=== PATIENT | female | born 1940 | race Caucasian/White ===

== ENCOUNTER 2021-03-08 13:58 | Inpatient (IN) ==
[2021-03-08] MEDS: carvediloL 25 MG TABLET PO SCH (22:30)
[2021-03-08] MEDS: lisinopriL 20 MG TABLET PO SCH (22:30)
[2021-03-08] MEDS: Cefdinir 300 MG CAPSULE PO SCH (22:31)
[2021-03-08] MEDS: Magnesium Oxide 400 MG TABLET PO SCH (22:32)
[2021-03-08] MEDS: Gabapentin 100 MG CAPSULE PO SCH (22:32)
[2021-03-09 08:25] LABS: Basophils % 0.6 %; Eosinophils # 0.2 K/mcL (0.0-0.6); Eosinophils % 2.9 %; Hematocrit 37.6 % (35.3-44.9); Hemoglobin 12.1 g/dL (11.5-15.4); Immature Granulocytes % 0.4 % (0-4); Lymphocytes # 0.8 K/mcL (0.6-4.6); Lymphocytes % 16.1 %; Mean Corpuscular HGB Conc 32.2 g/dL (31.6-35.5); Mean Corpuscular Hemoglobin 29.7 pg (28.0-33.3); Mean Corpuscular Volume 92.2 fL (83.0-100.0); Mean Platelet Volume 10.5 fL (9.4-12.4); Monocytes # 0.6 K/mcL (0.0-1.3); Monocytes % 11.2 %; Neutrophils # 3.6 K/mcL (1.6-8.9); Platelet Count 215 K/mcL (140-400); Red Blood Count 4.08 M/mcL (3.82-4.97); Red Cell Distribution Width 13.1 % (11.5-14.5); Segmented Neutrophils % 68.8 %; White Blood Count 5.2 K/mcL (4.3-11.1)
[2021-03-09 08:39] LABS: Calcium 8.9 mg/dL (8.6-10.3); Potassium 4.1 mEq/L (3.5-5.1)
[2021-03-09] MEDS: Gabapentin 100 MG CAPSULE PO SCH ×3 (10:51→22:01)
[2021-03-09] MEDS: Magnesium Oxide 400 MG TABLET PO SCH ×2 (10:52→22:02)
[2021-03-09] MEDS: Cefdinir 300 MG CAPSULE PO SCH ×2 (10:52→22:01)
[2021-03-09] MEDS: carvediloL 25 MG TABLET PO SCH ×3 (11:07→17:20)
[2021-03-09] MEDS: lisinopriL 20 MG TABLET PO SCH (22:00)
[2021-03-10] MEDS: carvediloL 25 MG TABLET PO SCH ×2 (09:41→18:05)
[2021-03-10] MEDS: Gabapentin 100 MG CAPSULE PO SCH ×3 (09:42→21:48)
[2021-03-10] MEDS: Cefdinir 300 MG CAPSULE PO SCH ×2 (09:42→21:48)
[2021-03-10] MEDS: Magnesium Oxide 400 MG TABLET PO SCH ×2 (09:42→21:48)
[2021-03-10] MEDS: lisinopriL 20 MG TABLET PO SCH (21:49)
[2021-03-11] MEDS: carvediloL 25 MG TABLET PO SCH (08:57)
[2021-03-11] MEDS: Cefdinir 300 MG CAPSULE PO SCH ×2 (09:04→22:52)
[2021-03-11] MEDS: Magnesium Oxide 400 MG TABLET PO SCH ×2 (09:04→22:51)
[2021-03-11] MEDS: Gabapentin 100 MG CAPSULE PO SCH ×3 (09:04→22:51)
[2021-03-11] MEDS ORDERED: hydrALAZINE 25 MG TABLET PO PRN (10:10)
[2021-03-11] MEDS ORDERED: NON-FORMULARY MEDICATION 1 EACH EACH (Alendronate Sodium [Fosamax] 70 MG Tablet) PO SCH (18:50)
[2021-03-12 09:12] LABS: Calcium 8.9 mg/dL (8.6-10.3); Potassium 4.2 mEq/L (3.5-5.1)
[2021-03-12] MEDS: Gabapentin 100 MG CAPSULE PO SCH ×3 (09:22→22:32)
[2021-03-12] MEDS: Magnesium Oxide 400 MG TABLET PO SCH ×2 (09:22→22:33)
[2021-03-12] MEDS: Cefdinir 300 MG CAPSULE PO SCH (09:22)
[2021-03-13] MEDS: *HR* HYDROcodone/Acet 5/325 mg TABLET PO PRN ×2 (06:10→16:40)
[2021-03-13] MEDS: Gabapentin 100 MG CAPSULE PO SCH ×3 (09:23→21:03)
[2021-03-13] MEDS: Magnesium Oxide 400 MG TABLET PO SCH ×2 (09:24→21:04)
[2021-03-13] MEDS ORDERED: hydrALAZINE 25 MG TABLET PO PRN (12:12)
[2021-03-13] MEDS ORDERED: 0.9 % Sodium Chloride 1,000 ML IVC SCH (12:30)
[2021-03-13] MEDS: hydrALAZINE 25 MG TABLET PO SCH ×2 (13:41→23:34)
[2021-03-13] MEDS: carvediloL 25 MG TABLET PO SCH (13:47)
[2021-03-13] MEDS ORDERED: hydrALAZINE 25 MG TABLET PO SCH (16:00)
[2021-03-14] MEDS: *HR* HYDROcodone/Acet 5/325 mg TABLET PO PRN (06:02)
[2021-03-14 08:15] LABS: Calcium 8.4 mg/dL (8.6-10.3); Potassium 4.2 mEq/L (3.5-5.1)
[2021-03-14] MEDS: Magnesium Oxide 400 MG TABLET PO SCH ×2 (08:17→19:53)
[2021-03-14] MEDS: carvediloL 25 MG TABLET PO SCH ×2 (08:18→16:43)
[2021-03-14] MEDS: hydrALAZINE 25 MG TABLET PO SCH ×2 (08:18→16:43)
[2021-03-14] MEDS: Gabapentin 100 MG CAPSULE PO SCH ×3 (08:19→19:51)
[2021-03-15] MEDS: hydrALAZINE 25 MG TABLET PO SCH ×4 (00:18→23:43)
[2021-03-15] MEDS: carvediloL 25 MG TABLET PO SCH ×2 (07:21→16:35)
[2021-03-15] MEDS: Gabapentin 100 MG CAPSULE PO SCH ×3 (07:21→19:52)
[2021-03-15] MEDS: Magnesium Oxide 400 MG TABLET PO SCH ×2 (07:22→19:52)
[2021-03-15] MEDS ORDERED: amLODIPine 5 MG TABLET PO SCH (09:00)
[2021-03-15] MEDS: *HR* HYDROcodone/Acet 5/325 mg TABLET PO PRN (23:42)
[2021-03-16 07:25] VITALS: BP 176/69; PULSE 57; RESP 20; TEMP 97.7; O2SAT 95
[2021-03-16] MEDS: Magnesium Oxide 400 MG TABLET PO SCH (08:04)
[2021-03-16] MEDS: carvediloL 25 MG TABLET PO SCH (08:04)
[2021-03-16] MEDS: hydrALAZINE 25 MG TABLET PO SCH (08:05)
[2021-03-16] MEDS: Gabapentin 100 MG CAPSULE PO SCH (08:05)
[2021-03-16] MEDS ORDERED: amLODIPine 5 MG TABLET PO SCH (09:00)
== END 2021-03-16 12:25 | disposition home health service (06) | DRG 309 ==
LOC: INPPIK 18:08
PROVIDERS: ADMIT Family Medicine; ATTEND Family Medicine